=== PATIENT | female | born 1945 | race Hispanic/Latino ===

== ENCOUNTER 2018-10-06 11:59 | Outpatient (CLI) | payer MEDICARE | END 2018-10-06 12:00 | disposition home or self-care (01) | LOC: RAD 11:59 ==

== ENCOUNTER 2018-10-15 17:07 | Observation (INO) | payer MEDICARE ==
[2018-10-15 17:16] VITALS: BMI 16.5
--- NOTE | 2018-10-15 17:49 | ED PDOC ---
Arrival/HPI - General Chief Complaint: Medical Clearance Time Seen by Provider: 10/15/18 17:30 Historian: Patient - History of Present Illness Narrative History of Present Illness (Text): 10/15/18 17:30 Gabriella Jose is a 72 year old female, with a past medical history of a- fib, who presents to the emergency department for coumadin overdose since 10:30 AM this morning. Patient states that she took 10 tablets of coumadin accidentally after mishearing a primary care provider. Patient she was supposed to take 2 tablets. Patient denies any symptoms since taking medication. Patient also takes furosamide. Patient denies bleeding, fevers, chills, headache, dizziness, chest pain, shortness of breath, dyspnea on exertion, cough, abdominal pain, nausea, vomiting, diarrhea, back pain, neck pain, or any other complaint. Time/Duration: Other (7 hours, 10:30 AM this morning) Symptom Onset: Gradual Symptom Course: Unchanged Activities at Onset: Light Context: Home Past Medical History - Provider Review Nursing Documentation Reviewed: Yes - Cardiac Hx Cardiac Arrhythmia: Yes (AFIB) Hx Hypertension: Yes Hx Pacemaker: No - Neurological Hx Paralysis: No - Hematological/Oncological Hx Blood Transfusions: No Hx Blood Transfusion Reaction: No - Musculoskeletal/Rheumatological Hx Musculoskeletal Disorders: No - Psychiatric Hx Depression: No Hx Emotional Abuse: No Hx Physical Abuse: No Hx Substance Use: No - Surgical History Hx Tonsillectomy: Yes - Anesthesia Hx Anesthesia Reactions: No Hx Malignant Hyperthermia: No - Suicidal Assessment Feels Threatened In Home Enviroment: No Family/Social History - Physician Review Nursing Documentation Reviewed: Yes Family/Social History: No Known Family HX Smoking Status: Never Smoked Hx Alcohol Use: Yes (SOCIALLY) Hx Substance Use: No Allergies/Home Meds Allergies/Adverse Reactions: Allergies Iodinated Contrast- Oral and IV Dye Allergy (Verified 10/15/18 17:34) SWELLING shellfish derived Allergy (Verified 10/15/18 17:34) SWELLING Home Medications: Home Meds Medication Instructions Recorded Confirmed Atenolol [Tenormin] 50 mg PO DAILY 10/15/18 10/15/18 Furosemide [Lasix] 40 mg PO DAILY 10/15/18 10/15/18 Warfarin Sodium [Jantoven] 5 mg PO DAILY 10/15/18 10/15/18 Review of Systems - Physician Review All systems were reviewed & negative as marked: Yes - Review of Systems Constitutional: Other (coumadin overdose) Cardiovascular: absent: Chest Pain Neurological: absent: Headache Hemo/Lymphatic: absent: Other (no bleeding) Physical Exam - Physical Exam Narrative Physical Exam (Text): 10/15/18 17:30 Constitutional: No acute distress. Head: Normocephalic. Atraumatic. Eyes: PERRL. ENT: No epistaxis. No gingival bleeding Neck: Supple. Cardiovascular: Tachycardic (Patient states did not take her atenolol today) Chest: No tenderness. Respiratory: Clear to auscultation bilaterally. GI: Soft. Nontender. Nondistended. Back: No CVA tenderness. Musculoskeletal: No tenderness or swelling of extremities. Skin: No rash. Neurologic: Alert, no focal deficit. Vital Signs Reviewed: Yes Vital Signs Temp Pulse Resp BP Pulse Ox 10/15/18 17:15 97.2 F L 149 H 18 85/48 L 99 Temperature: Afebrile Blood Pressure: Hypotensive Pulse: Tachycardic Respiratory Rate: Normal Appearance: Positive for: Well-Appearing, Non-Toxic, Comfortable Pain Distress: None Mental Status: Positive for: Alert and Oriented X 3 Medical Decision Making ED Course and Treatment: 10/15/18 17:30 Impression: Patient is a 72 year old female, with a past medical history of a- fib, who presents to the emergency department for coumadin overdose. Pt informs mishearing a primary care provider over the phone and took 10 tablets instead of 2. Differential Diagnosis included but are not limited to: warfarin overdose Plan: -- EKG -- Labs -- Reassess and disposition Dr. Stone called, Dr. Quiñonez accepts to his service. Agree with vitamin K dose now, observation. Called [facility] Control [facility], spoke with Luis M, recommends following INR closely, no further recommendations at this time. - Scribe Statement The provider has reviewed the documentation as recorded by the Scriblillie Ibarra All medical record entries made by the Scribe were at my direction and perso armando dictated by me. I have reviewed the chart and agree that the record accurately reflects my personal performance of the history, physical exam, medical decision making, and the department course for this patient. I have also personally directed, reviewed, and agree with the discharge instructions and disposition. Disposition/Present on Arrival - Present on Arrival Any Indicators Present on Arrival: No History of DVT/PE: No History of Uncontrolled Diabetes: No Urinary Catheter: No History of Decub. Ulcer: No History Surgical Site Infection Following: None - Disposition Have Diagnosis and Disposition been Completed?: Yes Diagnosis: Warfarin overdosage Disposition: HOSPITALIZED Disposition Time: 19:57 Patient Plan: Observation Condition: GOOD
[2018-10-15 18:12] LABS: BASO # 0.02 K/mm3 (0.0-2.0); BASO % 0.2 % (0.0-3.0); EOS # 0.1 (0.0-0.7); EOS % 0.9 % (1.5-5.0); HEMOGLOBIN 12.9 g/dL (12.0-16.0); LYMPH # 3.2 (1.2-3.4); LYMPH % 31.5 % (22.0-35.0); MEAN CELL VOLUME 89.8 fl (80.0-105.0); MEAN CORPUSCULAR HEMOGLOBIN 29.9 pg (25.0-35.0); MEAN CORPUSCULAR HGB CONC 33.2 g/dl (31.0-37.0); MEAN PLATELET VOLUME 10.4 fl (7.0-11.0); MONO # 0.8 (0.1-0.6); MONO % 7.8 % (1.0-6.0); RBC 4.32 10^6/uL (3.5-6.1); RED CELL DISTRIBUTION WIDTH 13.7 % (11.5-14.5); WHITE BLOOD COUNT 10.2 10^3/uL (4.5-11.0)
[2018-10-15 18:21] LABS: INR 1.63; PROTHROMBIN TIME 18.1 SECONDS (9.4-12.5)
[2018-10-15 18:22] LABS: ALB/GLOB RATIO 1.3 (1.1-1.8); ALBUMIN 4.5 g/dL (3.0-4.8); CALCIUM 10.1 mg/dL (8.4-10.5)
--- NOTE | 2018-10-15 21:54 | CARD ---
APPROVED REPORT Date of service: 10/15/2018 EKG Measurement Heart [id number] <Conclusion> Atrial fibrillation with rapid ventricular response Septal infarct, age undetermined NDSTT abnormalities Abnormal ECG
[2018-10-15] MEDS ORDERED: Influenza Vaccine 60 mcg/0.5 mL SYR (4YR UP) IM ONE (21:58)
[2018-10-15] MEDS ORDERED: Pneumococcal 23-Valent Vaccine IM ONE (21:58)
[2018-10-16 05:50] VITALS: O2SAT 96
[2018-10-16 06:41] LABS: INR 2.48
--- NOTE | 2018-10-16 08:48 | CP.PCM.HP ---
<ArcherSaurav - Last Filed: 10/16/18 11:28> History of Present Illness - History of Present Illness History of Present Illness: Saurav Archer- Internal Medicine Resident- H&P on Behalf of Dr. Quiñonez Subjective: CC: Warfarin Overdose HPI: Patient is a 72 year old female with a past medical history of atrial fibrillation on warfarin, bilateral hand spasms, seasonal allergies, and external hemorrhoids who was admitted for evaluation and treatment of taking too many warfarin tablets. Patient states that she misheard her physician's instructions and took 10 tablets of her home warfarin. Denies overt bleeding. Denies SI, HI, and visual/auditory hallucinations. Admits to baseline left and right hand spasms. Offers no new complaints at this time. Denies fever, chills, chest pain, shortness of breath, abdominal pain, nausea, vomiting, diarrhea, constipation, and urinary symptoms. 12 point ROS negative except as indicated in the HPI PMH: atrial fibrillation on warfarin, bilateral hand spasms, seasonal allergies, and external hemorrhoids PSH: tonsilectomy Allergies: Iodine, Shellfish SH: Social ETOH use, former tobacco use- quit 30 years ago, affected by second hand smoke, and denies illicit drug use FH: Father- ETOH abuse Medications: Refer to MAR Physical Examination: - Constitutional Appears: Non-toxic, No Acute Distress - Head Exam Head Exam: ATRAUMATIC, NORMOCEPHALIC - Eye Exam Eye Exam: EOMI - ENT Exam ENT Exam: Mucous Membranes Moist - Neck Exam Neck exam: Positive for: Full Rom - Respiratory Exam Respiratory Exam: CTA bilaterally - Cardiovascular Exam Cardiovascular Exam: +S1, +S2, absent: Systolic Murmur - GI/Abdominal Exam GI & Abdominal Exam: Normal Bowel Sounds, Soft. absent: Distended, Firm, Guarding, Organomegaly, Rebound, Tenderness - Extremities Exam Extremities exam: left and right hand spasm- cannot fully open; no clubbing, no cyanosis, no edema - Neurological Exam Neurological exam: Alert, Oriented x3 - Psychiatric Exam Psychiatric exam: Normal Affect, Normal Mood - Skin Skin Exam: Dry, Warm Assessment and Plan: Warfarin Overdose Atrial fibrillation on warfarin Bilateral hand spasms Emphysema Gastric Polyps Colon Polyps External hemorrhoids Seasonal allergies Iodine Allergy Shellfish Allergy EKG on admission- Atrial fibrillation with RVR, HR 149bpm, QTc 475ms Poison control called by ED phsyician who as per records recommended INR monitoring Patient given vitamin K 10mg PO tablet x 2 thus far. Monitor INR daily. Continue home atenolol and lasix. Cardiology consulted- appreciate recommendations. Start PRN duonebs for SOB. Continue heart healthy diet. Patient case reviewed with and plan approved by attending physician, Dr. Quiñonez. Present on Admission - Present on Admission Any Indicators Present on Admission: No Past Patient History - Past Social History Smoking Status: Former Smoker - CARDIAC Hx Cardiac Disorders: Yes (CAD) Hx Cardia Arrhythmia: Yes (AFIB) Hx Hypertension: Yes Hx Pacemaker: No - PULMONARY Hx Respiratory Disorders: Yes (USED TO SMOKE CIGARETTES QUIT 30 YRS AGO) Hx Chronic Obstructive Pulmonary Disease (COPD): Yes - NEUROLOGICAL Hx Neurological Disorder: No - HEENT Hx HEENT Problems: No - RENAL Hx Chronic Kidney Disease: No - ENDOCRINE/METABOLIC Hx Endocrine Disorders: No - HEMATOLOGICAL/ONCOLOGICAL Hx Blood Disorders: Yes (WARFARIN OD 10-15-18) - INTEGUMENTARY Hx Dermatological Problems: No - MUSCULOSKELETAL/RHEUMATOLOGICAL Hx Musculoskeletal Disorders: Yes (BILATERAL HAND CONTRACTURES,PLANNED SURGERY) Hx Falls: No - GASTROINTESTINAL Hx Gastrointestinal Disorders: Yes (COLON POLYPS,TONSILLECTOMY) - GENITOURINARY/GYNECOLOGICAL Hx Genitourinary Disorders: No - PSYCHIATRIC Hx Psychophysiologic Disorder: No Hx Depression: No Hx Emotional Abuse: No Hx Physical Abuse: No Hx Substance Use: No - SURGICAL HISTORY Hx Surgeries: Yes (TONSILLECTOMY, EGD, COLONOSCOPY) - ANESTHESIA Hx Anesthesia Reactions: No Hx Malignant Hyperthermia: No Meds Allergies/Adverse Reactions: Allergies Allergy/AdvReac Type Severity Reaction Status Date / Time Iodinated Contrast- Oral and Allergy SWELLING Verified 10/15/18 20:50 IV Dye shellfish derived Allergy SWELLING Verified 10/15/18 20:50 Results - Vital Signs Recent Vital Signs: Last Vital Signs Temp 98 F 10/16/18 05:48 Pulse 86 10/16/18 05:48 Resp 18 10/16/18 05:48 BP 105/64 10/16/18 05:48 Pulse Ox 96 10/16/18 05:48 - Labs Result Diagrams: 10/16/18 08:40 10/16/18 08:40 Labs: Laboratory Results - last 24 hr 10/15/18 10/15/18 10/15/18 17:45 17:45 17:45 WBC 10.2 RBC 4.32 Hgb 12.9 Hct 38.8 MCV 89.8 MCH 29.9 MCHC 33.2 RDW 13.7 Plt Count 294 MPV 10.4 Neut % (Auto) 59.6 Lymph % (Auto) 31.5 [place] % (Auto) 7.8 H Eos % (Auto) 0.9 L Baso % (Auto) 0.2 Lymph # (Auto) 3.2 [place] # (Auto) 0.8 H Eos # (Auto) 0.1 Baso # (Auto) 0.02 Absolute Neuts (auto) 6.08 PT 18.1 H INR 1.63 APTT 39.0 H Sodium 140 Potassium 3.7 Chloride 100 Carbon Dioxide 27 Anion Gap 17 BUN 30 H Creatinine 1.1 Est GFR ( Amer) 59 Est GFR (Non-Af Amer) 49 Random Glucose 110 Calcium 10.1 Total Bilirubin 0.7 AST 35 ALT 25 Alkaline Phosphatase 76 Total Protein 7.9 Albumin 4.5 Globulin 3.4 Albumin/Globulin Ratio 1.3 Blood Type Blood Type Confirm Antibody Screen BBK History Checked 10/15/18 10/15/18 10/16/18 17:45 19:28 06:15 WBC RBC Hgb Hct MCV MCH MCHC RDW Plt Count MPV Neut % (Auto) Lymph % (Auto) [place] % (Auto) Eos % (Auto) Baso % (Auto) Lymph # (Auto) [place] # (Auto) Eos # (Auto) Baso # (Auto) Absolute Neuts (auto) PT 28.0 H INR 2.48 APTT Sodium Potassium Chloride Carbon Dioxide Anion Gap BUN Creatinine Est GFR ( Amer) Est GFR (Non-Af Amer) Random Glucose Calcium Total Bilirubin AST ALT Alkaline Phosphatase Total Protein Albumin Globulin Albumin/Globulin Ratio Blood Type A POSITIVE Blood Type Confirm A POSITIVE Antibody Screen Negative BBK History Checked No verified bt <Navid Quiñonez - Last Filed: 10/16/18 13:16> History of Present Illness - History of Present Illness History of Present Illness: Pt seen and examined by me. I have reviewed the note of the clinical medical transcriptionist and I agree with it. I have discussed the assessment and plan with the resident. I have reviewed the medications and the last labs. Results - Vital Signs Recent Vital Signs: Last Vital Signs Temp 98 F 10/16/18 05:48 Pulse 86 10/16/18 05:48 Resp 18 10/16/18 05:48 BP 100/60 10/16/18 09:36 Pulse Ox 96 10/16/18 05:48 - Labs Result Diagrams: 10/16/18 08:40 10/16/18 08:40 Labs: Laboratory Results - last 24 hr 10/15/18 10/15/18 10/15/18 17:45 17:45 17:45 WBC 10.2 RBC 4.32 Hgb 12.9 Hct 38.8 MCV 89.8 MCH 29.9 MCHC 33.2 RDW 13.7 Plt Count 294 MPV 10.4 Neut % (Auto) 59.6 Lymph % (Auto) 31.5 [place] % (Auto) 7.8 H Eos % (Auto) 0.9 L Baso % (Auto) 0.2 Lymph # (Auto) 3.2 [place] # (Auto) 0.8 H Eos # (Auto) 0.1 Baso # (Auto) 0.02 Absolute Neuts (auto) 6.08 PT 18.1 H INR 1.63 APTT 39.0 H Sodium 140 Potassium 3.7 Chloride 100 Carbon Dioxide 27 Anion Gap 17 BUN 30 H Creatinine 1.1 Est GFR ( Amer) 59 Est GFR (Non-Af Amer) 49 Random Glucose 110 Calcium 10.1 Total Bilirubin 0.7 AST 35 ALT 25 Alkaline Phosphatase 76 Total Protein 7.9 Albumin 4.5 Globulin 3.4 Albumin/Globulin Ratio 1.3 Triglycerides Cholesterol LDL Cholesterol Direct HDL Cholesterol Blood Type Blood Type Confirm Antibody Screen BBK History Checked 10/15/18 10/15/18 10/16/18 17:45 19:28 06:15 WBC RBC Hgb Hct MCV MCH MCHC RDW Plt Count MPV Neut % (Auto) Lymph % (Auto) [place] % (Auto) Eos % (Auto) Baso % (Auto) Lymph # (Auto) [place] # (Auto) Eos # (Auto) Baso # (Auto) Absolute Neuts (auto) PT 28.0 H INR 2.48 APTT Sodium Potassium Chloride Carbon Dioxide Anion Gap BUN Creatinine Est GFR ( Amer) Est GFR (Non-Af Amer) Random Glucose Calcium Total Bilirubin AST ALT Alkaline Phosphatase Total Protein Albumin Globulin Albumin/Globulin Ratio Triglycerides Cholesterol LDL Cholesterol Direct HDL Cholesterol Blood Type A POSITIVE Blood Type Confirm A POSITIVE Antibody Screen Negative BBK History Checked No verified bt 10/16/18 10/16/18 08:40 08:40 WBC 8.1 D RBC 4.12 Hgb 12.2 Hct 37.1 MCV 90.0 MCH 29.6 MCHC 32.9 RDW 13.8 Plt Count 253 MPV 10.3 Neut % (Auto) 48.8 L Lymph % (Auto) 42.9 H [place] % (Auto) 6.2 H Eos % (Auto) 1.7 Baso % (Auto) 0.4 Lymph # (Auto) 3.5 H [place] # (Auto) 0.5 Eos # (Auto) 0.1 Baso # (Auto) 0.03 Absolute Neuts (auto) 3.93 PT INR APTT Sodium 142 Potassium 3.7 Chloride 102 Carbon Dioxide 30 Anion Gap 13 BUN 27 H Creatinine 0.8 Est GFR ( Amer) > 60 Est GFR (Non-Af Amer) > 60 Random Glucose 98 Calcium 9.7 Total Bilirubin 0.4 AST 25 ALT 19 Alkaline Phosphatase 61 Total Protein 6.7 Albumin 4.0 Globulin 2.8 Albumin/Globulin Ratio 1.4 Triglycerides 69 Cholesterol 207 H LDL Cholesterol Direct 117 HDL Cholesterol 60 Blood Type Blood Type Confirm Antibody Screen BBK History Checked
[2018-10-16 09:13] LABS: BASO # 0.03 K/mm3 (0.0-2.0); BASO % 0.4 % (0.0-3.0); EOS # 0.1 (0.0-0.7); EOS % 1.7 % (1.5-5.0); HEMOGLOBIN 12.2 g/dL (12.0-16.0); LYMPH # 3.5 (1.2-3.4); LYMPH % 42.9 % (22.0-35.0); MEAN CORPUSCULAR HEMOGLOBIN 29.6 pg (25.0-35.0); MEAN CORPUSCULAR HGB CONC 32.9 g/dl (31.0-37.0); MEAN PLATELET VOLUME 10.3 fl (7.0-11.0); MONO # 0.5 (0.1-0.6); MONO % 6.2 % (1.0-6.0); RBC 4.12 10^6/uL (3.5-6.1); RED CELL DISTRIBUTION WIDTH 13.8 % (11.5-14.5); WHITE BLOOD COUNT 8.1 10^3/uL (4.5-11.0)
[2018-10-16 09:28] LABS: ALB/GLOB RATIO 1.4 (1.1-1.8); ALT/SGPT 19 U/L (7-56); AST/SGOT 25 U/L (14-36); BLOOD UREA NITROGEN 27 mg/dL (7-21); CALCIUM 9.7 mg/dL (8.4-10.5); GFR NON-AFRICAN AMERICAN > 60; HDL CHOLESTEROL 60 mg/dL (29-60)
[2018-10-16 09:38] LABS: LDL CHOLESTEROL 117 mg/dL (0-129)
[2018-10-16] MEDS ORDERED: Albuterol-Ipratrop 3 mg / 0.5 (3 ml) UD IH PRN (11:24)
--- NOTE | 2018-10-16 15:14 | HP ---
DATE OF EXAM: 10/16/2018 HISTORY OF PRESENT ILLNESS: The patient was seen and examined, I do agree with the note of the medical imaging technologist. I was involved in the plan of care. The patient is a 72-year-old with history of atrial fibrillation, on Coumadin. She was subtherapeutic on 5 mg of Coumadin. She was followed with Dr. Stone for her anticoagulation. She was told to increase her Coumadin from 5 mg to 10 mg and this information was understood to be tablet on her Coumadin. The patient came into the hospital because of Coumadin overdose. She has an INR that is currently elevated. She was given a dose of vitamin K in the emergency room. She is going to be given another dose of Coumadin today. I will continue to keep her in the hospital. The patient does not have any signs of active bleeding. She is currently rate controlled. Initially, she had rapid rate, I did speak to Dr. Stone regarding the case. The patient did have external hemorrhoids and a history of colon polyps. The patient is on DuoNebs. She is currently comfortable. Denies any pain. She is going to continue with atenolol for her atrial fibrillation. She is currently on a heart-healthy diet. Navid Quiñonez MD
[2018-10-17 06:06] VITALS: RESP 18; TEMP 98
[2018-10-17 06:31] LABS: BASO # 0.02 K/mm3 (0.0-2.0); BASO % 0.3 % (0.0-3.0); EOS # 0.1 (0.0-0.7); EOS % 1.7 % (1.5-5.0); HEMOGLOBIN 11.4 g/dL (12.0-16.0); LYMPH # 2.5 (1.2-3.4); MEAN CELL VOLUME 90.2 fl (80.0-105.0); MEAN CORPUSCULAR HEMOGLOBIN 29.3 pg (25.0-35.0); MEAN CORPUSCULAR HGB CONC 32.5 g/dl (31.0-37.0); MEAN PLATELET VOLUME 9.9 fl (7.0-11.0); MONO # 0.4 (0.1-0.6); RBC 3.89 10^6/uL (3.5-6.1); RED CELL DISTRIBUTION WIDTH 13.7 % (11.5-14.5); WHITE BLOOD COUNT 6.3 10^3/uL (4.5-11.0)
[2018-10-17 06:32] LABS: INR 1.56; PROTHROMBIN TIME 17.6 SECONDS (9.4-12.5)
[2018-10-17 06:33] LABS: PARTIAL THROMBOPLASTIN TIME 34.6 Seconds (26.9-38.3)
[2018-10-17 06:39] LABS: ALB/GLOB RATIO 1.2 (1.1-1.8); ALBUMIN 3.7 g/dL (3.0-4.8); ALT/SGPT 22 U/L (7-56); AST/SGOT 30 U/L (14-36); BLOOD UREA NITROGEN 28 mg/dL (7-21); CALCIUM 9.4 mg/dL (8.4-10.5); GFR NON-AFRICAN AMERICAN > 60
--- NOTE | 2018-10-17 08:01 | CON ---
DATE OF CONSULTATION: 10/16/2018 REQUESTING PHYSICIAN: Dr. Quiñonez. REASON FOR CONSULTATION: Coumadin toxicity. HISTORY: This is a 72-year-old woman with a history of chronic atrial fibrillation, maintained on Coumadin therapy. An INR was checked yesterday, and this was subtherapeutic. She was instructed to take 10 mg dose of Coumadin and resume 5 mg daily. She misunderstood her instructions and instead took ten 5 mg tablets for a total of 50 mg. Her initial INR yesterday upon arrival in the emergency room was subtherapeutic, and repeat today is 2.4. She has no signs of active bleeding. She has had no significant bruising. She was treated with vitamin K last evening. She has been noted to exhibit more evidence of confusion at home. Her main concern lately is worsening contractures of her left hand. PAST MEDICAL HISTORY: Her past history is notable for the problems mentioned above. She underwent tonsillectomy many years ago. MEDICATIONS: Medications at home include warfarin, Lasix and Tenormin. ALLERGIES: SHE HAS HAD A REACTION TO CONTRAST MEDIA. SOCIAL HISTORY: She is a former smoker having quit over 30 years ago. FAMILY HISTORY: Both parents are from age-related illness. REVIEW OF SYSTEMS: A 10-point review of systems is notable mainly for the problems mentioned above. PHYSICAL EXAMINATION: GENERAL: She is a somewhat disheveled-appearing, middle-aged woman. VITAL SIGNS: Her blood pressure is 100/60 with a pulse of 86, in atrial fibrillation; respirations are 14. She is afebrile. HEENT: Normocephalic, atraumatic. NECK: Supple. No JVD noted. CHEST: Few scattered rhonchi heard. HEART: Rhythm is irregularly irregular with a soft systolic murmur heard at the lower left sternal border. ABDOMEN: Soft, nontender with normoactive bowel sounds. SKIN: Warm and dry. PSYCHIATRIC: Normal mood and affect. NEUROLOGIC: Alert and oriented x3. DIAGNOSTIC DATA: Potassium 3.7, BUN and creatinine are 27 and 0.8. White count 8.1, hemoglobin and hematocrit of 12.2 and 37.1, with a platelet count of 253,000. INR is 2.48. The electrocardiogram revealed atrial fibrillation with rapid ventricular response, nonspecific ST-T abnormalities are noted. IMPRESSION: 1. Coumadin overdose secondary to confusion regarding verbal instructions for Coumadin. 2. Chronic atrial fibrillation. 3. Probable significant cognitive dysfunction. 4. Rest of the problems as noted. RECOMMENDATIONS: Coumadin will continued to be withheld. An INR will be checked in the morning. An additional dose of vitamin K will be given at this time. If she has evidence of bleeding, transfusion of fresh-frozen plasma and platelets will be planned. The long-term safety of anticoagulant therapy will need to be addressed. Case details will be discussed with her brother as well. An INR is planned for the morning. Thank you for this consultation. I will be happy to follow along as needed. Miky Stone MD
--- NOTE | 2018-10-17 09:42 | CP.PCM.DIS ---
<Saurav Archer - Last Filed: 10/17/18 11:20> Provider - Provider Date of Admission: 10/15/18 19:31 Attending physician: Navid Quiñonez MD Primary care physician: NO FAMILY PROVIDER Consults: 10/15/18 21:09 Consult [Physician Consult] Routine Comment: Consulting Provider: Miky Stone Consulting Physician: Miky Stone Reason for Consult: A fib 10/15/18 21:58 Inpatient EMERGENCY MEDICAL TECHNICIAN BASIC Core Measures Referral Routine Comment: Physician Instructions: Reason For Exam: EVALUATION Transition In Care/Readmission Reduction Routine Comment: Physician Instructions: Reason For Exam: EVALUATION Time Spent in preparation of Discharge (in minutes): 45 Hospital Course - Lab Results Lab Results: Most Recent Lab Values WBC 6.3 10^3/uL (4.5-11.0) D 10/17/18 06:00 RBC 3.89 10^6/uL (3.5-6.1) 10/17/18 06:00 Hgb 11.4 g/dL (12.0-16.0) L 10/17/18 06:00 Hct 35.1 % (36.0-48.0) L 10/17/18 06:00 MCV 90.2 fl (80.0-105.0) 10/17/18 06:00 MCH 29.3 pg (25.0-35.0) 10/17/18 06:00 MCHC 32.5 g/dl (31.0-37.0) 10/17/18 06:00 RDW 13.7 % (11.5-14.5) 10/17/18 06:00 Plt Count 215 10^3/uL (120.0-450.0) 10/17/18 06:00 MPV 9.9 fl (7.0-11.0) 10/17/18 06:00 Neut % (Auto) 52.0 % (50.0-68.0) 10/17/18 06:00 Lymph % (Auto) 39.0 % (22.0-35.0) H 10/17/18 06:00 [place] % (Auto) 7.0 % (1.0-6.0) H 10/17/18 06:00 Eos % (Auto) 1.7 % (1.5-5.0) 10/17/18 06:00 Baso % (Auto) 0.3 % (0.0-3.0) 10/17/18 06:00 Lymph # (Auto) 2.5 (1.2-3.4) 10/17/18 06:00 [place] # (Auto) 0.4 (0.1-0.6) 10/17/18 06:00 Eos # (Auto) 0.1 (0.0-0.7) 10/17/18 06:00 Baso # (Auto) 0.02 K/mm3 (0.0-2.0) 10/17/18 06:00 Absolute Neuts (auto) 3.27 (1.4-6.5) 10/17/18 06:00 PT 17.6 SECONDS (9.4-12.5) H 10/17/18 06:00 INR 1.56 10/17/18 06:00 APTT 34.6 Seconds (26.9-38.3) 10/17/18 06:00 Sodium 140 mmol/L (132-148) 10/17/18 06:00 Potassium 3.6 mmol/L (3.6-5.0) 10/17/18 06:00 Chloride 104 mmol/L (98-107) 10/17/18 06:00 Carbon Dioxide 31 mmol/L (21-33) 10/17/18 06:00 Anion Gap 9 (10-20) L 10/17/18 06:00 BUN 28 mg/dL (7-21) H 10/17/18 06:00 Creatinine 0.9 mg/dl (0.7-1.2) 10/17/18 06:00 Est GFR ( Amer) > 60 10/17/18 06:00 Est GFR (Non-Af Amer) > 60 10/17/18 06:00 Random Glucose 105 mg/dL (70-110) 10/17/18 06:00 Hemoglobin A1c 6.3 % (4.2-6.5) 10/16/18 08:40 Calcium 9.4 mg/dL (8.4-10.5) 10/17/18 06:00 Total Bilirubin 0.8 mg/dL (0.2-1.3) 10/17/18 06:00 AST 30 U/L (14-36) 10/17/18 06:00 ALT 22 U/L (7-56) 10/17/18 06:00 Alkaline Phosphatase 60 U/L (38-126) 10/17/18 06:00 Total Protein 6.7 g/dL (5.8-8.3) 10/17/18 06:00 Albumin 3.7 g/dL (3.0-4.8) 10/17/18 06:00 Globulin 3.0 gm/dL 10/17/18 06:00 Albumin/Globulin Ratio 1.2 (1.1-1.8) 10/17/18 06:00 Triglycerides 69 mg/dL (35-160) 10/16/18 08:40 Cholesterol 207 mg/dL (130-200) H 10/16/18 08:40 LDL Cholesterol Direct 117 mg/dL (0-129) 10/16/18 08:40 HDL Cholesterol 60 mg/dL (29-60) 10/16/18 08:40 Blood Type A POSITIVE 10/15/18 17:45 Blood Type Confirm A POSITIVE 10/15/18 19:28 Antibody Screen Negative 10/15/18 17:45 BBK History Checked No verified bt 10/15/18 17:45 - Hospital Course Hospital Course: Patient is a 72 year old female with a past medical history of atrial fibrillation on warfarin, bilateral hand spasms, seasonal allergies, emphysema, and external hemorrhoids who was admitted for evaluation and treatment of taking too many warfarin tablets. Poison control called by ED physician who as per records recommended INR monitoring Patient was given vitamin K 10mg PO tablet x 2 and INR was monitored daily. INR remained subtherapeutic day 2 of hospital stay. Patient was started on eliquis 2.5mg PO BID and warfarin was stopped. Patients home lasix was discontinued as her blood pressure was in the 90s/60s. Patient was continued on home atenolol. Cardiology was consulted whose recommendations were appreciated. At this time the patient is medically stable for discharge. Patient understands and appreciates discharge plan. Patient instructed to follow up with primary care physicians and referrals within three to five days from discharge. Furthermore, the patient is instructed to take medications as prescribed and to return to emergency room for evaluation of new or worsening symptoms including but limited to intractable headache, fever, chills, dizziness, chest pain, shortness of breath, abdominal pain, nausea, vomiting, diarrhea, constipation, and urinary symptoms. This is a brief summary of the patients hospital course. Please see patient chart for full details. Discharge Diagnoses: Warfarin Overdose Atrial fibrillation on home warfarin (discontinued during this hospital stay) Bilateral hand spasms Emphysema Gastric Polyps Colon Polyps External hemorrhoids Seasonal allergies Iodine Allergy Shellfish Allergy Discharge Medications: - continue with home atenolol 50mg PO daily - discontinue home furosemide - DISCONTINUE COUMADIN/WARFARIN - start 1 tablet of eliquis 2.5mg via mouth twice a day Discharge Exam - Additional Findings Additional findings: - Constitutional Appears: Non-toxic, No Acute Distress - Head Exam Head Exam: ATRAUMATIC, NORMOCEPHALIC - Eye Exam Eye Exam: EOMI - ENT Exam ENT Exam: Mucous Membranes Moist - Neck Exam Neck exam: Positive for: Full Rom - Respiratory Exam Respiratory Exam: CTA bilaterally - Cardiovascular Exam Cardiovascular Exam: +S1, +S2, absent: Systolic Murmur - GI/Abdominal Exam GI & Abdominal Exam: Normal Bowel Sounds, Soft. absent: Distended, Firm, Guarding, Organomegaly, Rebound, Tenderness - Extremities Exam Extremities exam: left and right hand spasm- cannot fully open; no clubbing, no cyanosis, no edema - Neurological Exam Neurological exam: Alert, Oriented x3 - Psychiatric Exam Psychiatric exam: Normal Affect, Normal Mood - Skin Skin Exam: Dry, Warm Discharge Plan - Follow Up Plan Condition: GOOD Disposition: HOME/ ROUTINE Instructions: Apixaban Additional Instructions: Patient Instructions: 1. Please take home medications as prescribed: - continue with home atenalol - discontinue home furosemide -DISCONTINUE COUMADIN/WARFARIN - start 1 tablet of eliquis 2.5mg via mouth twice a day 2. Follow up with Dr. Quiñonez and Dr. Stone within three to five days from discharge. 3. Please go to the nearest emergency room for evaluation of new or worsening symptoms including but limited to intractable headache, fever, chills, dizziness, chest pain, shortness of breath, abdominal pain, nausea, vomiting, diarrhea, constipation, and urinary symptoms. Referrals: Miky Stone MD [Staff Provider] - Navid Quiñonez MD [Staff Provider] - <Navid Quiñonez - Last Filed: 10/17/18 12:34> Provider - Provider Date of Admission: 10/15/18 19:31 Attending physician: Navid Quiñonez MD Primary care physician: NO FAMILY PROVIDER Consults: 10/15/18 21:09 Consult [Physician Consult] Routine Comment: Consulting Provider: Miky Stone Consulting Physician: Miky Stone Reason for Consult: A fib 10/15/18 21:58 Inpatient EMERGENCY MEDICAL TECHNICIAN BASIC Core Measures Referral Routine Comment: Physician Instructions: Reason For Exam: EVALUATION Transition In Care/Readmission Reduction Routine Comment: Physician Instructions: Reason For Exam: EVALUATION Hospital Course - Lab Results Lab Results: Most Recent Lab Values WBC 6.3 10^3/uL (4.5-11.0) D 10/17/18 06:00 RBC 3.89 10^6/uL (3.5-6.1) 10/17/18 06:00 Hgb 11.4 g/dL (12.0-16.0) L 10/17/18 06:00 Hct 35.1 % (36.0-48.0) L 10/17/18 06:00 MCV 90.2 fl (80.0-105.0) 10/17/18 06:00 MCH 29.3 pg (25.0-35.0) 10/17/18 06:00 MCHC 32.5 g/dl (31.0-37.0) 10/17/18 06:00 RDW 13.7 % (11.5-14.5) 10/17/18 06:00 Plt Count 215 10^3/uL (120.0-450.0) 10/17/18 06:00 MPV 9.9 fl (7.0-11.0) 10/17/18 06:00 Neut % (Auto) 52.0 % (50.0-68.0) 10/17/18 06:00 Lymph % (Auto) 39.0 % (22.0-35.0) H 10/17/18 06:00 [place] % (Auto) 7.0 % (1.0-6.0) H 10/17/18 06:00 Eos % (Auto) 1.7 % (1.5-5.0) 10/17/18 06:00 Baso % (Auto) 0.3 % (0.0-3.0) 10/17/18 06:00 Lymph # (Auto) 2.5 (1.2-3.4) 10/17/18 06:00 [place] # (Auto) 0.4 (0.1-0.6) 10/17/18 06:00 Eos # (Auto) 0.1 (0.0-0.7) 10/17/18 06:00 Baso # (Auto) 0.02 K/mm3 (0.0-2.0) 10/17/18 06:00 Absolute Neuts (auto) 3.27 (1.4-6.5) 10/17/18 06:00 PT 17.6 SECONDS (9.4-12.5) H 10/17/18 06:00 INR 1.56 10/17/18 06:00 APTT 34.6 Seconds (26.9-38.3) 10/17/18 06:00 Sodium 140 mmol/L (132-148) 10/17/18 06:00 Potassium 3.6 mmol/L (3.6-5.0) 10/17/18 06:00 Chloride 104 mmol/L (98-107) 10/17/18 06:00 Carbon Dioxide 31 mmol/L (21-33) 10/17/18 06:00 Anion Gap 9 (10-20) L 10/17/18 06:00 BUN 28 mg/dL (7-21) H 10/17/18 06:00 Creatinine 0.9 mg/dl (0.7-1.2) 10/17/18 06:00 Est GFR ( Amer) > 60 10/17/18 06:00 Est GFR (Non-Af Amer) > 60 10/17/18 06:00 Random Glucose 105 mg/dL (70-110) 10/17/18 06:00 Hemoglobin A1c 6.3 % (4.2-6.5) 10/16/18 08:40 Calcium 9.4 mg/dL (8.4-10.5) 10/17/18 06:00 Total Bilirubin 0.8 mg/dL (0.2-1.3) 10/17/18 06:00 AST 30 U/L (14-36) 10/17/18 06:00 ALT 22 U/L (7-56) 10/17/18 06:00 Alkaline Phosphatase 60 U/L (38-126) 10/17/18 06:00 Total Protein 6.7 g/dL (5.8-8.3) 10/17/18 06:00 Albumin 3.7 g/dL (3.0-4.8) 10/17/18 06:00 Globulin 3.0 gm/dL 10/17/18 06:00 Albumin/Globulin Ratio 1.2 (1.1-1.8) 10/17/18 06:00 Triglycerides 69 mg/dL (35-160) 10/16/18 08:40 Cholesterol 207 mg/dL (130-200) H 10/16/18 08:40 LDL Cholesterol Direct 117 mg/dL (0-129) 10/16/18 08:40 HDL Cholesterol 60 mg/dL (29-60) 10/16/18 08:40 Blood Type A POSITIVE 10/15/18 17:45 Blood Type Confirm A POSITIVE 10/15/18 19:28 Antibody Screen Negative 10/15/18 17:45 BBK History Checked No verified bt 10/15/18 17:45 - Hospital Course Hospital Course: Pt seen and examined by me. I have reviewed the note of the biomedical engineering technologist and I agree with it. I have discussed the assessment and plan with the resident. I have reviewed the medications and the last labs.
[2018-10-17 09:52] VITALS: BP 98/63
[2018-10-17 12:13] VITALS: PULSE 115
--- NOTE | 2018-10-17 13:42 | PN ---
DATE: 10/17/2018 SUBJECTIVE: The patient is seen lying in bed on telemetry. She is somnolent. She states she slept poorly last evening. She remains in atrial fibrillation. Remarkably her INR has not resumed drastically. CURRENT MEDICATIONS: Include Eliquis 2.5 mg twice a day, DuoNeb inhaler. Her Tenormin has been on hold. OBJECTIVE: GENERAL: She is a middle-aged woman who appears somnolent, but arousable. VITAL SIGNS: Her blood pressure is 98/60 with a pulse of 86 in atrial fibrillation, respirations are 14. She is afebrile. HEENT: No JVD. CHEST: Bilateral scattered rhonchi. HEART: Rhythm is irregularly irregular. Systolic murmur left sternal border. ABDOMEN: Soft, nontender with normoactive bowel sounds. EXTREMITIES: No edema. DIAGNOSTIC DATA: White count 6.3, hemoglobin and hematocrit 11.4 and 35.1 with platelet count of 215,000. PT/PTT 17.6/34.6 with an INR of 1.56. Potassium 3.6, BUN and creatinine 28 and 0.9. IMPRESSION: 1. Recent Coumadin overdose with no evidence of excessive anticoagulant effect. 2. Probable significant cognitive dysfunction. 3. Chronic atrial fibrillation. RECOMMENDATIONS: I agree with withholding Coumadin completely. Low-dose Eliquis therapy appears more appropriate choice given a fixed dose and less potential for administration confusion. From a cardiac standpoint, she appears stable for discharge home at this time. Outpatient followup will be arranged. Miky Stone MD MTDD
--- NOTE | 2018-10-18 02:31 | DS ---
HOSPITAL COURSE: The patient was seen and examined. I agree with a note of medical coder. The plan of care was reviewed with the patient. Initially been admitted to the hospital because of her overdose of her Coumadin. She has taken 50 mg total and she was given vitamin K. Her INR this morning is not increasing, but actually decreasing, it was discussed with Dr. Stone and we had agreed to the patient should stay off Coumadin. She is going to be started on Eliquis 2.5 mg b.i.d. She has a weight of 107 pounds, so she will get the lower dose of the Eliquis. The patient currently feels well. She has no complaints of any pain. She is going to follow up with me in the office as an outpatient. The patient is going to follow with Dr. Stone for the atrial fibrillation. She is going to continue with her atenolol. She is on heart healthy diet. Navid Quiñonez MD
== END 2018-10-17 13:15 | disposition home or self-care (01) ==
LOC: ED 17:07 → ERH 19:31 → 2RSO 10-16 01:38
PROVIDERS: ADMIT Internal Medicine Nephrology; ATTEND Internal Medicine Nephrology
DX: T45.511A Poisoning by anticoagulants, accidental (unintentional), initial encounter (principal); I48.2 Chronic atrial fibrillation; Z79.01 Long term (current) use of anticoagulants; J43.9 Emphysema, unspecified; J30.2 Other seasonal allergic rhinitis; I10 Essential (primary) hypertension; K64.4 Residual hemorrhoidal skin tags; Z86.010 Personal history of colon polyps; Z87.891 Personal history of nicotine dependence; R25.2 Cramp and spasm
CPT/HCPCS: 36415; 80053; 80061; 83036; 85025; 85610; 85730; 86850; 86900; 93005; 99285; G0378